=== PATIENT | female | born 1995 | race Caucasian/White ===

== ENCOUNTER 2017-10-08 16:52 | Emergency (ER) | payer BC, SELFPAY ==
[2017-10-08 16:53] VITALS: BP 164/77; PULSE 90; RESP 18; TEMP 36.9; O2SAT 99; BMI 42.7
--- NOTE | 2017-10-08 17:20 | US_ITS ---
US Abdomen RUQ (limited) INDICATION: RT SIDE PAIN GETTING WORSE COMPARISON: None TECHNIQUE: Ultrasonographic grayscale, Doppler and duplex investigation of the right upper quadrant. FINDINGS: The liver measures 17 cm and demonstrates normal echogenicity. The gallbladder is partially contracted. No evidence of gallstones, gallbladder wall thickening, or pericholecystic fluid. The pancreas is not well seen due to overlying bowel gas. The common bile duct measures 4 mm. The right kidney measures 10.4 cm in length and is unremarkable. US/Gallbladder IMPRESSION: Negative right upper quadrant ultrasound. at 1817 Reported and signed by: Soheila Stephen MD Electronically Signed: Soheila Stephen MD at 18:15 EDT Tel , Service support ,
--- NOTE | 2017-10-08 17:21 | ED.VISSUMM ---
- ER Visit Summary Date of Service: 10/08/17 Chief Complaint: Abdominal pain History of Present Illness: The patient is a 22 F presents to the emergency department with abdominal pain. Patient symptoms began early this morning. She states that she had a slight cramping across her right upper quadrant. He did not seem to be worse with food. States it wax and wane and throughout the day it has gotten worse. She has been mildly nauseated. She did eat at about 2 PM it did not seem to change the pain. She feels that the pain has gotten worse though throughout the day. She has had no fever or chills. She has never had pain like this before. She has no history of prior abdominal surgery. Physical Examination: Vital signs reviewed General: Well-nourished, well-developed Head: Normocephalic, atraumatic Eyes: Pupils equal and reactive, extraocular muscles intact Neck, supple, no lymphadenopathy Heart: Regular rate and rhythm Respiratory: No distress, clear bilaterally Abdomen: Soft, mildly tender in the right upper quadrant without rebound or guarding nondistended, no peritoneal signs Back: Nontender Extremities: Nontender, no edema, no cords Skin: Normal color no rash Neuro: Alert and oriented, no focal or lateralizing deficits Test Results: Right upper quadrant ultrasound unremarkable Emergency Department Course and Treatment: The patient had some pain in her right upper quadrant. It was not a definitive Miramontes sign. However, given her symptoms in size I did want to rule out cholecystitis. Labs were obtained and are unremarkable. Her ultrasound shows no acute process. Her urine shows no infection. With Toradol and fluids, her symptoms are totally resolved. I do not suspect a dangerous cause of her abdominal pain. I do feel this patient can safely be discharged and followed as an outpatient. She is comfortable this plan of care. She will return to the emergency department with any worsening symptoms. Treatment Plan: [] Disposition: Discharge Impression: Right upper quadrant abdominal pain-resolved This note was generated with [employer] ([employer]) dictation software. It may contain incorrect words, spelling, and punctuation that were not noted in review of the chart prior to signing ED Disposition - Plan for ED Patient: Chief Complaint: Abd Pain Instructions: ED Abdominal Pain Unkn Cause Prescriptions: Ondansetron [Zofran Odt] 4 mg PO Q8H PRN PRN #10 tab PRN Reason: Nausea Dicyclomine HCl [Bentyl] 20 mg PO TIDAC #20 cap Referrals: Shelby Paul MD [Primary Care Provider] -
[2017-10-08 17:39] LABS: Bacteria 0 SEEN /hpf (None Seen); Mucous, Urine 0 SEEN /hpf (<or=2+); Red Blood Cells-Urine 0 SEEN /hpf (0-5); Squamous Epithelial Cells - UA 0 SEEN /hpf (5-10)
[2017-10-08] MEDS: 0.9% Normal Saline 1,000 ML 1000 ML IV (17:43)
[2017-10-08] MEDS: Ondansetron 4 MG/2 ML Vial IV (17:44)
[2017-10-08] MEDS: Ketorolac 30 MG/ML Syringe IV (17:44)
[2017-10-08 17:45] LABS: Absolute Lymphocyte Count 2.24 X10^3/ul (0.83-4.51); Absolute Neutrophil Count 6.3 X10^3/uL (2.0-7.7); Basophil# 0.01 X10^3/uL; Basophil% 0.1 % (0-1); Eosinophil# 0.04 X10^3/uL; Eosinophils% 0.4 % (0-5); Hematocrit 39.9 % (37-47); Hemoglobin 13.5 g/dl (12.0-15.0); Lymphocyte # 2.24 X10^3/ul (4.0); Lymphocyte % 24.2 % (19-41); Mean Corp Hgb Conc 33.8 g/gl (32-36); Mean Corpuscular Volume 82.6 fL (81-99); Mean Platelet Vol. 9.7 fl (6.2-12.0); Monocyte# 0.61 X10^3/uL; Monocyte% 6.6 % (0-10); Neutrophil # 6.33 X10^3/uL (2.7-7.7); Neutrophil % 68.5 % (47-70); Platelet Count 335 K/mm3 (150-450); RBC Distribution Width CV 12.9 % (11.6-14.6); RBC Distribution Width SD 38.4 fl (35.1-43.9); Red Blood Count 4.83 M/mm3 (4.2-5.4); White Blood Count 9.3 K/mm3 (4.4-11.0)
[2017-10-08 17:46] LABS: POSITIVE COUNT NO; POSITIVE DIFFERENTIAL NO; POSITIVE MORPHOLOGY NO
[2017-10-08 17:59] LABS: AST(SGOT) 9 U/L (15-37); Alanine Aminotransfer ALT/SGPT 16 U/L (13-56); Albumin, Serum 4.1 g/dL (3.2-5.0); Alkaline Phosphatase 83 U/L (45-117); Anion Gap 7 (5-15); BUN 9 mg/dL (7-18); Calcium,Total 9.2 mg/dL (8.5-10.1); Chloride 109 mmol/L (98-107); EST Glomerular Filtration Rate 84 mL/min (>60); Est Glom Filt Rate - Afr Amer 102 mL/min (>60); Estimated Creatinine Clearance 92.56 ml/min; Globulin 3.6 g/dL (2.2-4.2); Glucose 98 mg/dL (74-106); Lipase 118 U/L (73-393); Potassium 3.6 mmol/L (3.5-5.1); Pregnancy, Serum, hCG Quali. NEGATIVE Negative (0-9 Nonpreg); Protein, Total 7.7 g/dL (6.4-8.2); Sodium Level 140 mmol/L (136-145)
[2017-10-08 18:01] LABS: Color, Urine Yellow (Yellow); Glucose, Dipstick Normal (Normal); Ketone-Dipstick Negative (Negative); Leukocyte Esterase-Dipstick 500 /ul (Negative); Nitrite-Dipstick Negative (Negative); Occult Blood-Urine Negative /ul (Negative); Protein-Dipstick Negative (Negative); Urine Bilirubin Dipstick Negative (Negative); Urine Clarity Clear (Clear); Urine Urobilinogen Normal (Normal)
[2017-10-08 18:48] LABS: White Blood Cells 0-5 SEEN /hpf (0-5)
[2017-10-08 19:11] VITALS: BP 145/79; PULSE 89; RESP 17; O2SAT 100
== END 2017-10-08 19:13 | disposition home or self-care (01) ==
LOC: ED 17:38
PROVIDERS: Emergency Provider Emergency Medicine; Family Provider Pediatrics; PCP Pediatrics
DX: R10.11 Right upper quadrant pain (principal); R11.0 Nausea; E66.9 Obesity, unspecified
CPT/HCPCS: 76705; 80048; 80076; 81001; 83690; 84703; 85025; 96361; 96374; 96375; 99283; J7030; J2405

== ENCOUNTER 2018-06-06 21:21 | Emergency (ER) | payer BC, SELFPAY ==
[2018-06-06 21:21] VITALS: BP 154/83; PULSE 97; RESP 14; TEMP 37.2; O2SAT 95; BMI 43.5
[2018-06-06 22:11] VITALS: TEMP 37.2
[2018-06-06 22:29] LABS: Color, Urine Yellow (Yellow); Glucose, Dipstick Normal (Normal); Ketone-Dipstick 5 mg/dl (Negative); Leukocyte Esterase-Dipstick 100 /ul (Negative); Mucous, Urine 0 SEEN /hpf (<or=2+); Nitrite-Dipstick Negative (Negative); Occult Blood-Urine 25 /ul (Negative); Protein-Dipstick Negative (Negative); Urine Bilirubin Dipstick Negative (Negative); Urine Clarity Cloudy (Clear); Urine Urobilinogen Normal (Normal); Urine pH 6.5 (5.0 - 8.0)
[2018-06-06 22:37] LABS: Bacteria 2+ /hpf (None Seen); Red Blood Cells-Urine 0-5 SEEN /hpf (0-5); Squamous Epithelial Cells - UA 10-25 SEEN /hpf (5-10); White Blood Cells 50-100 SEEN /hpf (0-5)
--- NOTE | 2018-06-06 22:53 | ED.DCSUM_ITS ---
- ER Visit Summary Date of Service: 06/06/18 Chief Complaint: UTI symptoms History of Present Illness: The patient is a 23 F with dysuria and frequency for the past couple of days. She denies fever or chills. She has not had any back pain. She denies vaginal discharge. She denies possibility of . Last menstrual cycle was last week. Physical Examination: Vital signs gross unremarkable. Patient sitting upright in bed no acute distress. Head neck examination normal. Heart is regular rate and rhythm. Lungs sounds are clear. Abdomen is soft with focal tenderness in the suprapubic area. No guarding or rebound. Back examination was no CVA tenderness. Test Results: Urinalysis shows 50-100 white cells with 2+ bacteria. 10-25 epithelials are noted. Emergency Department Course and Treatment: Patient is given Bactrim and Pyridium. Prescriptions will be provided. Treatment Plan: [] Disposition: Discharge Impression: Cystitis This note was generated with [employer] dictation software. It may contain incorrect words, spelling, and punctuation that were not noted in review of the chart prior to signing ED Disposition - Plan for ED Patient: Chief Complaint: Complaint Referrals: Care Physician,No Primary [Primary Care Provider] -
--- NOTE | 2018-06-06 22:53 | ED.DEP ---
ED Disposition - Plan for ED Patient: Disposition: Home or Assisted Living Chief Complaint: Complaint Instructions: ED UTI Cystitis Female Prescriptions: Phenazopyridine HCl [Pyridium] 200 mg PO BID PRN PRN #6 tablet PRN Reason: Pain Smz/Tmp Ds [Bactrim Ds] 1 tablet PO BID #6 tablet Referrals: Fast,Dagmar, DO [NON-STAFF] - As Needed
[2018-06-06] MEDS: Phenazopyridine 95 MG Tablet 190 MG PO (23:01)
[2018-06-06] MEDS: Smz/Tmp Ds Tablet 1 TABLET PO (23:01)
[2018-06-06 23:02] VITALS: PULSE 80; RESP 16
== END 2018-06-06 23:03 | disposition home or self-care (01) ==
PROVIDERS: Emergency Provider Emergency Medicine
DX: N30.90 Cystitis, unspecified without hematuria (principal); J45.909 Unspecified asthma, uncomplicated
CPT/HCPCS: 81001; 87086; 87088; 99283

== ENCOUNTER 2020-09-22 09:24 | Emergency (ER) | payer BC, SELFPAY ==
[2020-09-22 09:26] VITALS: BP 148/84; PULSE 92; RESP 15; TEMP 36.8; O2SAT 100; BMI 49.7
[2020-09-22 09:54] VITALS: BP 148/84; PULSE 92; RESP 16; TEMP 36.8; O2SAT 100
--- NOTE | 2020-09-22 10:43 | EDS_ITS ---
HPI History of Present Illness Chief Complaint: Complaint Detail of Chief Complaint: Back pain, UTI Informant: patient Onset/Context/Timing Onset: Days (5) Context: Gradual Onset Timing: Continuous Quality: Aching Location: Lumbar paraspinal areas, worse on the left Associated Symptoms Associated Symptoms: Nausea Narrative Narrative: Patient presents with urinary tract infection and back pain that has been getting worse over the past 5 days. Patient states she went to an urgent care 4 days ago and was diagnosed with a urinary tract infection. Patient states she was given a prescription for Cipro at that time. Patient states it does not seem to be helping. Patient admits to some dysuria and urinary frequency. Patient states that over the past couple days she has developed some nausea and low back pain that is worse on the left. Patient denies any fevers or chills. PFSH PFSH Home Medications phenazopyridine [Pyridium] 200 mg PO BID PRN PRN #6 tab 06/06/18 [Rx Last Taken Unknown] ciprofloxacin HCl [Cipro] 500 mg PO BID 09/22/20 [History Last Taken Unknown] hydrocodone-acetaminophen 1 tab PO Q6H PRN PRN 3 Days #10 tablet 09/22/20 [Rx Last Taken Unknown] Allergy/AdvReac Type Severity Reaction Status Date / Time azithromycin [From Zithromax] Allergy Swelling Verified 09/22/20 09:28 sulfamethoxazole Allergy Hives Verified 09/22/20 09:28 [From Bactrim] trimethoprim [From Bactrim] Allergy Hives Verified 09/22/20 09:28 amoxicillin AdvReac Rash Verified 09/22/20 09:28 Surgical History History of foot operation Social History Smoking Status: Never smoker ROS ROS ED Constitutional Constitutional ED: Denies chills or fever(s) Eyes Eyes: Denies blurry vision or change in vision ENT ENT ED: Denies rhinorrhea or sore throat Cardiovascular Cardiovascular: Denies chest pain or palpitations Respiratory/Chest Respiratory/Chest: Denies cough or dyspnea Gastrointestinal Gastrointestinal: Reports nausea; Denies vomiting Genitourinary Genitourinary ED: Reports dysuria and urinary frequency; Denies hematuria Musculoskeletal Musculoskeletal: Reports back pain; Denies neck pain Integumentary Denies abscess or rash Neurologic Neurologic: Denies headache(s) or weakness Allergic/Immunologic Allergic/Immunologic ED: Denies mouth swelling or urticaria EXAM Physical Exam Const Vital Signs: 09/22/20 09:26 09/22/20 09:54 09/22/20 11:28 Temperature 98.2 F 98.2 F 98.2 F Temperature Source Temporal Temporal Temporal Pulse Rate 92 92 67 Respiratory Rate 15 16 18 Blood Pressure 148/84 H 148/84 H 129/90 H Blood Pressure Mean 105 105 103 Pulse Ox 100 100 98 Oxygen Delivery Method Room Air Room Air Room Air Positive well nourished, well developed and obese General Appearance ED: well developed Nutritional Appearance: obese HEENT Reports moist mucous membranes Neck supple and no JVD Resp normal respiratory effort and clear to auscultation bilaterally Cardio regular rate and regular rhythm GI Palpation: soft and tender suprapubic Back/Spine General Back: CVA tenderness left Neuro oriented x3, CN's II-XII intact bilaterally and no sensory deficits noted Sensorium / Orientation: alert Motor Exam: strength 5/5 throughout MDM MDM MDM Narrative Medical decision making narrative: Patient's labs were reviewed with her. Patient was instructed to continue her Cipro as prescribed until gone. Patient was given a prescription for a short course of [place]. Patient was instructed to follow-up with her primary care physician in 3 to 5 days. Patient understood and was agreeable with the plan. All questions were answered. Lab Data Attestation: I reviewed the patient's lab results. Labs: Laboratory Results - last 24 hr 09/22/20 09/22/20 09/22/20 10:45 11:10 11:10 WBC 7.8 RBC 4.79 Hgb 12.8 Hct 39.6 MCV 82.7 MCH 26.7 L MCHC 32.3 RDW Std Deviation 38.5 RDW Coeff of Rama 12.9 Plt Count 383 MPV 9.2 Immature Gran % (Auto) 0.400 Neut % (Auto) 65.9 Lymph % (Auto) 26.6 Meagher % (Auto) 5.4 Eos % (Auto) 1.2 Baso % (Auto) 0.5 Absolute Neuts (auto) 5.1 Absolute Lymphs (auto) 2.07 Nucleated RBC % 0 Sodium 139 Potassium 3.8 Chloride 108 H Carbon Dioxide 29.0 Anion Gap 2 L BUN 9 Creatinine 0.74 Estim Creat Clear Calc 105.48 Est GFR (MDRD) Af Amer 124 Est GFR (MDRD) Non-Af 102 BUN/Creatinine Ratio 12.2 Glucose 95 Calcium 9.1 Total Bilirubin 0.50 AST 11 L ALT 23 Alkaline Phosphatase 71 Total Protein 7.9 Albumin 4.0 Globulin 3.9 Albumin/Globulin Ratio 1.0 Serum , Qual Urine Color Yellow Urine Clarity Clear Urine pH 7.0 Ur Specific Homer 1.005 Urine Protein Negative Urine Glucose (UA) Normal Urine Ketones Negative Urine Occult Blood Negative Urine Nitrite Negative Urine Bilirubin Negative Urine Urobilinogen Normal Ur Leukocyte Esterase 25 H Urine RBC 0 SEEN Urine WBC 0 SEEN Ur Squamous Epith Cells 0-5 SEEN Urine Bacteria 0 SEEN Urine Mucus 0 SEEN 09/22/20 11:10 WBC RBC Hgb Hct MCV MCH MCHC RDW Std Deviation RDW Coeff of Rama Plt Count MPV Immature Gran % (Auto) Neut % (Auto) Lymph % (Auto) Meagher % (Auto) Eos % (Auto) Baso % (Auto) Absolute Neuts (auto) Absolute Lymphs (auto) Nucleated RBC % Sodium Potassium Chloride Carbon Dioxide Anion Gap BUN Creatinine Estim Creat Clear Calc Est GFR (MDRD) Af Amer Est GFR (MDRD) Non-Af BUN/Creatinine Ratio Glucose Calcium Total Bilirubin AST ALT Alkaline Phosphatase Total Protein Albumin Globulin Albumin/Globulin Ratio Serum , Qual NEGATIVE Urine Color Urine Clarity Urine pH Ur Specific Homer Urine Protein Urine Glucose (UA) Urine Ketones Urine Occult Blood Urine Nitrite Urine Bilirubin Urine Urobilinogen Ur Leukocyte Esterase Urine RBC Urine WBC Ur Squamous Epith Cells Urine Bacteria Urine Mucus Discharge Plan Triage Chief Complaint: Complaint ED Provider: Siddhartha Roland Dx/Rx/DC Orders Clinical Impression: Urinary tract infection Instructions: ED Bladder Infection, Female (Adult) Prescriptions: New hydrocodone-acetaminophen [hydrocodone-acetaminophen] 1 TABLET tablet 1 tab PO Q6H PRN PRN (Reason: Pain) 3 Days Qty: 10 RF: 0 No Action phenazopyridine [Pyridium] 200 MG tablet 200 mg PO BID PRN PRN (Reason: Pain) Qty: 6 RF: 0 ciprofloxacin HCl [Cipro] 500 mg Tablet 500 mg PO BID RF: 0 Primary Care Provider: Care Physician,No Primary Referrals: Dov Russ MD [STAFF PHYSICIAN] - 5-7 Days Care Physician,No Primary [Primary Care Provider] - Disposition Disposition: Home, self care
[2020-09-22 11:05] LABS: Bacteria 0 SEEN /hpf (None Seen); Mucous, Urine 0 SEEN /hpf (<or=2+); Red Blood Cells-Urine 0 SEEN /hpf (0-5); White Blood Cells 0 SEEN /hpf (0-5)
[2020-09-22 11:06] LABS: Color, Urine Yellow (Yellow); Glucose, Dipstick Normal (Normal); Ketone-Dipstick Negative (Negative); Leukocyte Esterase-Dipstick 25 /ul (Negative); Nitrite-Dipstick Negative (Negative); Occult Blood-Urine Negative /ul (Negative); Protein-Dipstick Negative (Negative); Specific Gravity, Urine 1.005 (1.002-1.030); Urine Bilirubin Dipstick Negative (Negative); Urine Clarity Clear (Clear); Urine Urobilinogen Normal (Normal)
[2020-09-22 11:13] LABS: Squamous Epithelial Cells - UA 0-5 SEEN /hpf (5-10)
[2020-09-22 11:15] LABS: Absolute Lymphocyte Count 2.07 X10^3/uL (0.83-4.51); Absolute Neutrophil Count 5.1 X10^3/uL (2.0-7.7); Basophil# 0.04 X10^3/uL; Basophil% 0.5 % (0-1); Eosinophil# 0.09 X10^3/uL; Eosinophils% 1.2 % (0-5); Hematocrit 39.6 % (37-47); Hemoglobin 12.8 g/dL (12.0-15.0); Lymphocyte # 2.07 X10^3/ul (0.83-4.51); Lymphocyte % 26.6 % (19-41); Mean Corp Hgb Conc 32.3 g/dL (32-36); Mean Corpuscular Hgb 26.7 pg (27.0-32.0); Mean Corpuscular Volume 82.7 fL (81-99); Mean Platelet Vol. 9.2 fl (6.2-12.0); Monocyte# 0.42 X10^3/uL; Monocyte% 5.4 % (0-10); NRBC Flagged by Analyzer 0 % (0-5); Neutrophil # 5.12 X10^3/uL (2.7-7.7); Neutrophil % 65.9 % (47-70); Platelet Count 383 K/mm3 (150-450); RBC Distribution Width CV 12.9 % (11.6-14.6); RBC Distribution Width SD 38.5 fl (35.1-43.9); Red Blood Count 4.79 M/mm3 (4.2-5.4); White Blood Count 7.8 K/mm3 (4.4-11.0)
[2020-09-22 11:23] LABS: Internal QC Validated? YES +Cl - CLEAR BKGD; Pregnancy, Serum, hCG Quali. NEGATIVE Negative
[2020-09-22 11:28] VITALS: BP 129/90; PULSE 67; RESP 18; TEMP 36.8; O2SAT 98
[2020-09-22 11:31] LABS: AST(SGOT) 11 U/L (15-37); Alanine Aminotransfer ALT/SGPT 23 U/L (13-56); Alkaline Phosphatase 71 U/L (45-117); Anion Gap 2 (5-15); BUN 9 mg/dL (7-18); BUN/Creat Ratio 12.2 RATIO (10-20); Calcium,Total 9.1 mg/dL (8.5-10.1); Chloride 108 mmol/L (98-107); Creatinine, Serum 0.74 mg/dL (0.55-1.02); EST Glomerular Filtration Rate 102 mL/min (>60); Est Glom Filt Rate - Afr Amer 124 mL/min (>60); Estimated Creatinine Clearance 105.48 ml/min; Globulin 3.9 g/dL (2.2-4.2); Glucose 95 mg/dL (74-106); Potassium 3.8 mmol/L (3.5-5.1); Protein, Total 7.9 g/dL (6.4-8.2); Sodium Level 139 mmol/L (136-145)
== END 2020-09-22 12:38 | disposition home or self-care (01) ==
PROVIDERS: Emergency Provider Emergency Medicine
DX: N39.0 Urinary tract infection, site not specified (principal); Z79.2 Long term (current) use of antibiotics; E66.9 Obesity, unspecified
CPT/HCPCS: 80053; 81001; 84703; 85025; 87086; 87088; 99285